=== PATIENT | female | born 1960 | race Asian ===

== ENCOUNTER 2017-03-15 11:30 | Emergency (ER) | payer SELFPAY ==
[~2017-03-15] VITALS: Ht 162.6 cm; Wt 77.1 kg
[2017-03-15] MEDS ORDERED: LEVOTHYROXINE25 MCG ORAL (11:49)
[2017-03-15] MEDS ORDERED: METOPROLOL TART50 M1 ORAL (11:49)
[2017-03-15] MEDS ORDERED: ALLOPURINOL100 M1 ORAL (11:49)
[2017-03-15] MEDS ORDERED: ATORVASTATIN CA10 MG ORAL (11:49)
[2017-03-15] MEDS ORDERED: ZITHROMAX250 MG ORAL (12:12)
--- NOTE | 2017-03-15 12:19 | Emergency Room Report ---
History of Present Illness General Chief Complaint: Upper Respiratory Illness Source: Patient Present Illness HPI 56-year-old female in no significant past medical history presenting with subjective fever and cough for 2 days. Productive cough with yellow sputum. Subjective fever has not measured it. Slight shortness of breath. No sick contacts recent travel or recent hospitalizations Allergies: Coded Allergies: No Known Allergies (Unverified , 03/15/17) Patient History Past Medical History: see triage record Past Surgical History: none Pertinent Family History: none Last Menstrual Period: Hyst Reviewed Nursing Documentation: PMH: Agreed, PSxH: Agreed Nursing Documentation-PMH Hx Hypertension: Yes Hx Diabetes: No - Hypothyroid Review of Systems All Other Systems: negative except mentioned in HPI Physical Exam Vital Signs Date Time Temp Pulse Resp B/P (MAP) Pulse Ox O2 Delivery O2 Flow Rate FiO2 03/15/17 11:39 98.1 66 16 159/97 98 Room Air Sp02 EP Interpretation: reviewed, normal General Appearance: alert, GCS 15, non-toxic, mild distress, other - speaking complete sentences without difficulty Head: normocephalic, atraumatic Eyes: bilateral eye normal inspection, bilateral eye PERRL, bilateral eye EOMI ENT: normal ENT inspection, normal pharynx, normal voice, moist mucus membranes Neck: normal inspection, full range of motion, supple Respiratory: no respiratory distress, no retraction, no wheezing, speaking full sentences, other - Mild crackles right lung, chest symmetrical Cardiovascular #1: normal inspection, regular rate, rhythm, no edema, normal capillary refill Cardiovascular #2: 2+ radial (R), 2+ radial (L) Gastrointestinal: normal inspection, non tender, soft, non-distended, no guarding Musculoskeletal: normal inspection, back normal, normal range of motion, non- tender Neurologic: normal inspection, alert, oriented x3, responsive, motor strength/ tone normal, sensory intact, normal gait, speech normal Psychiatric: normal inspection, judgement/insight normal, memory normal Skin: normal inspection, normal color, no rash, warm/dry, well hydrated, normal turgor Medical Decision Making Diagnostic Impression: Primary Impression: Atypical pneumonia ER Course 56-year-old female with productive cough for 2 days, subjective fever and chills Differential Upper respiratory tract infection, pneumonia Plan Chest x-ray ER course: CXR: +infiltrate/consolidation Patient has remained nontoxic appearing, not in respiratory distress. Patient able to tolerate PO antibiotics. Vital signs have been normal. Disposition: Patient is to be discharged to home with antibiotics Utilizing [id number], patient with low mortality from pneumonia and outpatient treatment is adequate at this time. Strict return precautions discussed with patient such as worsening/severe SOB, worsening cough or hemoptysis, chest pain, fever, chills, which may indicate severe illness. Patient verbalized understanding. Patient is to follow up with their primary care doctor in 2 days. Patient agrees with plan. Please note that this Emergency Department Report was dictated using [employer] tank cleaning technology software, occasionally this can lead to erroneous entry secondary to interpretation by the dictation equipment. Chest X-ray CXR: Ordered: Yes 1 view Indication: Cough EP interpretation: Yes Interpretation: interstitial infilrate worse on R Impression: atypical pneumonia Electronically signed by Elizabeth Carrasquillo MD Last Vital Signs Date Time Temp Pulse Resp B/P (MAP) Pulse Ox O2 Delivery O2 Flow Rate FiO2 03/15/17 11:56 16 Room Air 03/15/17 11:39 98.1 66 159/97 98 Disposition: HOME, SELF-CARE Condition: Stable Scripts Benzonatate* (TESSALON PERLE*) 100 Mg Capsule 100 MG ORAL THREE TIMES A DAY for 5 Days, #15 PERLE 0 Refills Prov: Elizabeth Carrasquillo M.D. 03/15/17 Azithromycin* (ZITHROMAX*) 250 Mg Tablet 250 MG ORAL DAILY, #6 TAB 0 Refills Take two tables once daily for 1 day, then one tablet once daily for 4 days. Prov: Elizabeth Carrasquillo M.D. 03/15/17 Patient Instructions: Community-Acquired Pneumonia, Adult, [id number] Additional Instructions: Please follow up with your primary care doctor within 3 days. Please take your prescription medication as directed. Please come back to the emergency room if you are having severe shortness of breath, high fever or chills, inability to eat or drink Elizabeth Carrasquillo M.D. Mar 15, 2017 12:19
[2017-03-15 12:20] VITALS: BP 127/80
[2017-03-15] MEDS ORDERED: TESSALON PERLE100 MG ORAL (12:20)
--- NOTE | 2017-03-15 12:23 | Diagnostic Imaging Report ---
Indication: SOB Technique: One view of the chest Comparison: none Findings: There is some atelectasis at the left lung base. Lungs and pleural spaces are otherwise clear. Heart size is normal. The aorta is tortuous and calcified Impression: No acute process
== END 2017-03-15 12:20 | disposition home or self-care (01) ==
LOC: EMR 12:01
DX: J18.9 Pneumonia, unspecified organism (principal); I10 Essential (primary) hypertension; E03.9 Hypothyroidism, unspecified
CPT/HCPCS: 71010; 99284